=== PATIENT | female | born 1960 | race Caucasian/White ===

== ENCOUNTER → 2016-06-07 17:01 | Outpatient (CLI) | payer MEDICARE | END | disposition home or self-care (01) | LOC: D.MAMMO 11:15 | DX: Z12.31 Encounter for screening mammogram for malignant neoplasm of breast (principal) ==

== ENCOUNTER 2016-12-10 11:37 | Emergency (ER) | payer MEDICARE | END 2016-12-10 13:57 | disposition home or self-care (01) | LOC: D.ER 11:37 | DX: T49.5X5A Adverse effect of ophthalmological drugs and preparations, initial encounter (principal); Y92.89 Other specified places as the place of occurrence of the external cause; R60.0 Localized edema ==

== ENCOUNTER 2016-12-17 12:43 | Emergency (ER) | payer MEDICARE | END 2016-12-17 15:20 | disposition home or self-care (01) | LOC: D.ER 12:43 | DX: R06.00 Dyspnea, unspecified (principal); J01.90 Acute sinusitis, unspecified; R09.89 Other specified symptoms and signs involving the circulatory and respiratory systems; R50.9 Fever, unspecified ==

== ENCOUNTER → 2018-03-13 17:40 | Outpatient (CLI) | payer MEDICARE | END | disposition home or self-care (01) | LOC: D.MAMMO 13:30 | DX: Z12.31 Encounter for screening mammogram for malignant neoplasm of breast (principal) ==

== ENCOUNTER 2018-04-09 15:07 | Inpatient (IN) | payer MEDICARE ==
[~2018-04-09] VITALS: Ht 160 cm; Wt 90.0 kg
--- NOTE | ~2018-04-09 | MORECARE ---
CASE MANAGEMENT DISCHARGE SUMMARY PATIENT: RAS MULLINS STACIE UNIT: [id number] ADM DATE: 04/09/18 AGE: 57 : 64 SEX: F ROOM/BED: D.2220 AUTHOR: JOHN PATTERSON PHYSICIAN: REFERRING PHYSICIAN: ABIMAEL CASH MD DATE OF SERVICE: 04/11/18 Discharge Plan Patient Name: RAS MULLINS Facility: [facility]:[place] : 1960 Planned Disposition: Home Anticipated Discharge Date: Discharge Date: Expected LOS: Initial Reviewer: [email or web address] Initial Review Date: 04/09/2018 Generated: 04/11/18 1:18 pm Comments DCP- Discharge Planning Updated by [id number]: Sita Ross on 04/11/18 11:[address] Patient Name: RAS MULLINS Admission Status: ER Accout number: [id number] Admission Date: 04-09-2018 : 1960 Admission Diagnosis: Attending: ABIMAEL CASH Current LOS: 2 Anticipated DC Date: Planned Disposition: Home Primary Insurance: MEDICARE A & B Discharge Planning Comments: CM met with patient to assess discharge planning needs. Patient stated that she lives independently at home where she plans to return at discharge. Either her son or daughter will be her bobtail driver home. She denies any use of DME. She stated that she could use some help with cleaning at home. I sent a referral to [facility], I spoke with Albin. They will see and assist her. She stated her home is safe to return. CM will continue to follow and assist with DC planning Ammonia Nitrate Operator: Sita Ross DCPIA - Discharge Planning Initial Assessment Updated by [email or web address]: Sita Ross on 04/11/18 12:08 pm * Is the patient Alert and Oriented? Yes * How many steps to enter\exit or inside your home? * PCP DR RAYMUNDO ([place]) * Pharmacy [facility] * Preadmission Environment Home Alone * ADLs Independent * Equipment None * List name and contact numbers for known caregivers / representatives who currently or will assist patient after discharge: DIONISIO RAYMUNDO (DAUGHTER) [phone] * Verbal permission to speak to the caregivers and representatives has been obtained from the patient. N/A * Community resources currently utilized None * Additional services required to return to the preadmission environment? No * Can the patient safely return to the preadmission environment? Yes * Has this patient been hospitalized within the prior 30 days at any hospital? No Last DP export: 04/11/18 11:09 Patient Name: RAS MULLINS Page [id number] at 1218 All edits/amendments must be made on the electronic document DICTATION DATE: 04/11/181216 LABEL DESIGNER: PAIGE 04/11/181216 RPT#: [id number] DC DATE: STATUS: ADM IN [facility] [address] [place] [address] END OF REPORT
--- NOTE | ~2018-04-09 | MORECARE ---
CASE MANAGEMENT DISCHARGE SUMMARY PATIENT: RAS MULLINS STACIE UNIT: [id number] ADM DATE: 04/09/18 AGE: 57 : 64 SEX: F ROOM/BED: D.2220 AUTHOR: JOHN PATTERSON PHYSICIAN: REFERRING PHYSICIAN: ABIMAEL CASH MD DATE OF SERVICE: 04/12/18 Discharge Plan Patient Name: RAS MULLINS Facility: [facility]:[place] : 1960 Planned Disposition: Home Anticipated Discharge Date: Discharge Date: Expected LOS: Initial Reviewer: [email or web address] Initial Review Date: 04/09/2018 Generated: 04/12/18 3:01 pm Comments DCP- Discharge Planning Updated by [email or web address]: Sita Ross on 04/12/18 12:[address] PATIENT WILL BE DISHCAHRGED HOME TODAY, I SENT REFERRAL TO [facility], I CALLED AGAIN TO LET THEM KNOW THAT SHE WAS BEING DISHCARGED. THEY STATED THAT THEY WOULD GO TO THE PATIENTS HOME FOR ASSESSMENT IF THEY DIDN'T GET TO THE HOSPITAL BEFORE SHE WAS DISCHARGED. IMM SERVED AND EXPLAINED. CM WILL CONTINUE TO FOLLOW AND ASSIST WITH DC PLANNNING DCP- Discharge Planning Updated by [email or web address]: Sita Ross on 04/11/18 11:[address] Patient Name: RAS MULLINS Admission Status: ER Accout number: [id number] Admission Date: 04-09-2018 : 1960 Admission Diagnosis: Attending: ABIMAEL CASH Current LOS: 2 Anticipated DC Date: Planned Disposition: Home Primary Insurance: MEDICARE A & B Discharge Planning Comments: CM met with patient to assess discharge planning needs. Patient stated that she lives independently at home where she plans to return at discharge. Either her son or daughter will be her milk driver home. She denies any use of DME. She stated that she could use some help with cleaning at home. I sent a referral to [facility], I spoke with Albin. They will see and assist her. She stated her home is safe to return. CM will continue to follow and assist with DC planning Hand Launderer: Sita Ross DCPIA - Discharge Planning Initial Assessment Updated by [email or web address]: Sita Ross on 04/11/18 12:08 pm * Is the patient Alert and Oriented? Yes * How many steps to enter\exit or inside your home? * PCP DR RAYMUNDO ([place]) * Pharmacy [facility] * Preadmission Environment Home Alone * ADLs Independent * Equipment None * List name and contact numbers for known caregivers / representatives who currently or will assist patient after discharge: DIONISIO RAYMUNDO (DAUGHTER) [phone] * Verbal permission to speak to the caregivers and representatives has been obtained from the patient. N/A * Community resources currently utilized None * Additional services required to return to the preadmission environment? No * Can the patient safely return to the preadmission environment? Yes * Has this patient been hospitalized within the prior 30 days at any hospital? No Coverage Notice Reviewer: [email or web address] Aashish Ross Notice Issued Date-Time: 04/12/2018 13:50 Notice Type: IM Discharge Notice Notice Delivered To: Patient Relationship to Patient: Electrical System Specialist Name: Delivery Method: HAND - Hand Delivered Catalina Days: Prior Verbal Notification: Recipient Understood Notice: Yes Recipient Signature: Yes Med Rec Note Co-signed by Attending: Coverage Notice Comment: Last DP export: 04/11/18 11:18 Patient Name: RAS MULLINS Page [phone] at 1402 All edits/amendments must be made on the electronic document DICTATION DATE: 04/12/18 1401 FISH CULTURIST: PAIGE 04/12/18 1401 RPT#: [id number] DC DATE: STATUS: ADM IN [facility] [address] [place] [address] END OF REPORT
--- NOTE | ~2018-04-09 | MORECARE ---
CASE MANAGEMENT DISCHARGE SUMMARY PATIENT: RAS MULLINS STACIE UNIT: [id number] ADM DATE: 04/09/18 AGE: 57 : 64 SEX: F ROOM/BED: D.2220 AUTHOR: JOHN PATTERSON PHYSICIAN: REFERRING PHYSICIAN: ABIMAEL CASH MD DATE OF SERVICE: 04/12/18 Discharge Plan Patient Name: RAS MULLINS Facility: [facility]:[place] : 1960 Planned Disposition: Home Anticipated Discharge Date: Discharge Date: 04/12/2018 Expected LOS: 0 Initial Reviewer: [email or web address] Initial Review Date: 04/09/2018 Generated: 04/12/18 5:42 pm Comments DCP- Discharge Planning Updated by [email or web address]: Sita Ross on 04/12/18 12:[address] PATIENT WILL BE DISHCAHRGED HOME TODAY, I SENT REFERRAL TO [facility], I CALLED AGAIN TO LET THEM KNOW THAT SHE WAS BEING DISHCARGED. THEY STATED THAT THEY WOULD GO TO THE PATIENTS HOME FOR ASSESSMENT IF THEY DIDN'T GET TO THE HOSPITAL BEFORE SHE WAS DISCHARGED. IMM SERVED AND EXPLAINED. CM WILL CONTINUE TO FOLLOW AND ASSIST WITH DC PLANNNING DCP- Discharge Planning Updated by [email or web address]: Sita Ross on 04/11/18 11:[address] Patient Name: RAS MULLINS Admission Status: ER Accout number: [id number] Admission Date: 04-09-2018 : 1960 Admission Diagnosis: Attending: ABIMAEL CASH Current LOS: 2 Anticipated DC Date: Planned Disposition: Home Primary Insurance: MEDICARE A & B Discharge Planning Comments: CM met with patient to assess discharge planning needs. Patient stated that she lives independently at home where she plans to return at discharge. Either her son or daughter will be her route driver home. She denies any use of DME. She stated that she could use some help with cleaning at home. I sent a referral to [facility], I spoke with Albin. They will see and assist her. She stated her home is safe to return. CM will continue to follow and assist with DC planning Water/Wastewater Project Engineer: Sita Ross DCPIA - Discharge Planning Initial Assessment Updated by [email or web address]: Sita Ross on 04/11/18 12:08 pm * Is the patient Alert and Oriented? Yes * How many steps to enter\exit or inside your home? * PCP DR RAYMUNDO ([place]) * Pharmacy [facility] * Preadmission Environment Home Alone * ADLs Independent * Equipment None * List name and contact numbers for known caregivers / representatives who currently or will assist patient after discharge: DIONISIO RAYMUNDO (DAUGHTER) [phone] * Verbal permission to speak to the caregivers and representatives has been obtained from the patient. N/A * Community resources currently utilized None * Additional services required to return to the preadmission environment? No * Can the patient safely return to the preadmission environment? Yes * Has this patient been hospitalized within the prior 30 days at any hospital? No Coverage Notice Reviewer: [email or web address] - Sita Ross Notice Issued Date-Time: 04/12/2018 13:50 Notice Type: IM Discharge Notice Notice Delivered To: Patient Relationship to Patient: Personal Counselor Name: Delivery Method: HAND - Hand Delivered Catalina Days: Prior Verbal Notification: Recipient Understood Notice: Yes Recipient Signature: Yes Med Rec Note Co-signed by Attending: Coverage Notice Comment: Last DP export: 04/12/18 1:01 Patient Name: RAS MULLINS Page [phone] at 1642 All edits/amendments must be made on the electronic document DICTATION DATE: 04/12/181641 PRINT FINISHING WORKER: PAIGE 04/12/181641 RPT#: [id number] DC DATE:04/12/18 STATUS: DIS IN [facility] [address] [place] [address] END OF REPORT
--- NOTE | ~2018-04-09 | MORECARE ---
CASE MANAGEMENT DISCHARGE SUMMARY PATIENT: RAS MULLINS STACIE UNIT: [id number] ADM DATE: 04/09/18 AGE: 57 : 64 SEX: F ROOM/BED: D.2220 AUTHOR: JOHN PATTERSON PHYSICIAN: REFERRING PHYSICIAN: ABIMAEL CASH MD DATE OF SERVICE: 04/11/18 Discharge Plan Patient Name: RAS MULLINS Facility: [facility]:[place] : 1960 Planned Disposition: Home Anticipated Discharge Date: Discharge Date: Expected LOS: Initial Reviewer: [email or web address] Initial Review Date: 04/09/2018 Generated: 04/11/18 1:09 pm DCPIA - Discharge Planning Initial Assessment Updated by [email or web address]: Sita Ross on 04/11/18 12:08 pm * Is the patient Alert and Oriented? Yes * How many steps to enter\exit or inside your home? * PCP DR RAYMUNDO ([place]) * [facility] * Preadmission Environment Home Alone * ADLs Independent * Equipment None * List name and contact numbers for known caregivers / representatives who currently or will assist patient after discharge: DIONISIO RAYMUNDO (DAUGHTER) [phone] * Verbal permission to speak to the caregivers and representatives has been obtained from the patient. N/A * Community resources currently utilized None * Additional services required to return to the preadmission environment? No * Can the patient safely return to the preadmission environment? Yes * Has this patient been hospitalized within the prior 30 days at any hospital? No External Providers External Provider: [facility] Contact Date: Service Request Date: Service Type: Resolution: Reviewer: Comments: Patient Name: RAS MULLINS Page [phone] at 1209 All edits/amendments must be made on the electronic document DICTATION DATE: 04/11/18 1209 UPKEEP MECHANIC: PAIGE 04/11/18 1209 RPT#: [id number] DC DATE: STATUS: ADM IN [facility] [address] [place] [address] END OF REPORT
[2018-04-09 16:02] VITALS: BP 102/63
[2018-04-09 16:37] LABS: APPEARANCE CLEAR (CLEAR); BILIRUBIN NEGATIVE (NEGATIVE); COLOR YELLOW (YELLOW); GLUCOSE NEGATIVE (NEGATIVE); KETONE NEGATIVE (NEGATIVE); NITRITE NEGATIVE (NEGATIVE); PROTEIN NEGATIVE (NEGATIVE); UROBILINOGEN NORMAL (NORMAL)
[2018-04-09 16:50] LABS: BASOPHILS 0.9 % (0-2); EOSINOPHILS 4.5 % (0-7); HEMATOCRIT 36.9 % (36.0-48.0); LYMPHOCYTES 49.3 % (15-50); MCH 29.1 pg (26.0-34.0); MCHC 32.5 g/dL (31.0-37.0); MCV 89.3 fL (80.0-100.0); MEAN PLATELET VOLUME 10.8 fL (7.4-10.4); NEUTROPHILS 31.3 % (40-80); PLATELET COUNT 208 10x3/uL (130-400); RBC 4.13 10x6/uL (4.00-5.40); WBC 3.4 10x3/uL (4.8-10.8)
[2018-04-09 17:18] LABS: ALBUMIN 3.4 g/dL (3.4-5.0); ALKALINE PHOSPHATASE 75 U/L (46-116); ALT (SGPT) 13 U/L (10-68); AMYLASE - SERUM 43 U/L (25-115); BILIRUBIN - TOTAL 0.31 mg/dL (0.2-1.3); CALC OSMOLALITY 275 mosm/kg (275-300); CALCIUM 8.6 mg/dL (8.5-10.1); CARBON DIOXIDE 21.5 mmol/L (21.0-32.0); CHLORIDE - SERUM 107 mmol/L (98-107); CREATININE - SERUM 0.6 mg/dL (0.6-1.3); GLUCOSE 79 mg/dL (74-106); LIPASE 138 U/L (73-393); PROTEIN - SERUM 6.7 g/dL (6.4-8.2); SODIUM 140 mmol/L (136-145); UREA NITROGEN 8 mg/dL (7-18); eGFR NON AFRICAN AMERICAN > 90 mL/min (90-120)
[2018-04-09 17:42] VITALS: BP 117/75
[2018-04-09 20:00] VITALS: BP 128/85
[2018-04-09 22:11] VITALS: BP 105/65
[2018-04-09 23:50] VITALS: BP 105/62; BMI 35.1
[2018-04-10] VITALS: BP 105/62
[2018-04-10 04:00] VITALS: BP 90/54
[2018-04-10 05:00] LABS: HEMATOCRIT 33.3 % (36.0-48.0); HEMOGLOBIN 10.6 g/dL (12-16); MCHC 31.8 g/dL (31.0-37.0); MCV 91.2 fL (80.0-100.0); MEAN PLATELET VOLUME 10.3 fL (7.4-10.4); RBC 3.65 10x6/uL (4.00-5.40); RDW 14.1 % (11.5-14.5); WBC 3.5 10x3/uL (4.8-10.8)
[2018-04-10 05:30] LABS: ALBUMIN 2.7 g/dL (3.4-5.0); ALKALINE PHOSPHATASE 63 U/L (46-116); ALT (SGPT) 10 U/L (10-68); BILIRUBIN - TOTAL 0.28 mg/dL (0.2-1.3); CALC OSMOLALITY 284 mosm/kg (275-300); CALCIUM 7.9 mg/dL (8.5-10.1); CARBON DIOXIDE 25.1 mmol/L (21.0-32.0); CHLORIDE - SERUM 110 mmol/L (98-107); GLUCOSE 82 mg/dL (74-106); POTASSIUM - SERUM 3.6 mmol/L (3.5-5.1); PROTEIN - SERUM 5.6 g/dL (6.4-8.2); SODIUM 144 mmol/L (136-145); UREA NITROGEN 10 mg/dL (7-18)
[2018-04-10 05:51] LABS: CREATININE - SERUM 0.8 mg/dL (0.6-1.3); eGFR NON AFRICAN AMERICAN 79 mL/min (90-120)
[2018-04-10 06:35] LABS: PLATELET COUNT 163 10x3/uL (130-400)
[2018-04-10 07:42] LABS: EOSINOPHILS 4 % (0-7); LYMPHOCYTES 56 % (15-50); MONOCYTES 6 % (2-11); NEUTROPHILS 32 % (40-80); PLATELET ESTIMATE NORMAL; PLATELET MORPHOLOGY PLT CLUMPS PRESENT; SMUDGE CELLS OCC
[2018-04-10 08:15] VITALS: BP 87/53
[2018-04-10] MEDS ORDERED: DOK100 MG PO (13:46)
[2018-04-10] MEDS ORDERED: AMITRIPTYLINE100 MG PO (13:46)
[2018-04-10] MEDS ORDERED: CELEXA40 MG PO (13:47)
[2018-04-10] MEDS ORDERED: ESTRACE 0.5 MG0.5 MG PO (13:47)
[2018-04-10] MEDS ORDERED: MOBIC7.5 MG PO (13:48)
[2018-04-10] MEDS ORDERED: ZOCOR40 MG PO (13:49)
[2018-04-10] MEDS ORDERED: LUNESTA2 M1 PO (13:50)
[2018-04-10] MEDS ORDERED: LYRICA75 MG PO (13:51)
[2018-04-10] MEDS ORDERED: TOPAMAX50 MG PO (13:52)
[2018-04-10] MEDS ORDERED: LISINOPRIL5 MG PO (13:52)
[2018-04-10] MEDS ORDERED: FLUTICASONE PRO16 GM NASAL (13:53)
[2018-04-10 14:42] VITALS: BP 89/54
[2018-04-10 17:41] VITALS: Ht 160 cm; Wt 90.0 kg
[2018-04-10 20:00] VITALS: BP 107/63
[2018-04-11] VITALS: BP 105/58
[2018-04-11 04:00] VITALS: BP 91/52
[2018-04-11 04:36] LABS: BASOPHILS 0.9 % (0-2); EOSINOPHILS 6.4 % (0-7); HEMATOCRIT 33.1 % (36.0-48.0); HEMOGLOBIN 10.6 g/dL (12-16); IMMATURE GRANULOCYTES 0.3 % (0-5); LYMPHOCYTES 42.8 % (15-50); MCV 90.4 fL (80.0-100.0); MEAN PLATELET VOLUME 10.5 fL (7.4-10.4); MONOCYTES 13.1 % (2-11); NEUTROPHILS 36.5 % (40-80); PLATELET COUNT 159 10x3/uL (130-400); RBC 3.66 10x6/uL (4.00-5.40); RDW 14.1 % (11.5-14.5); WBC 3.3 10x3/uL (4.8-10.8)
[2018-04-11 04:45] LABS: CALC OSMOLALITY 285 mosm/kg (275-300); CALCIUM 8.2 mg/dL (8.5-10.1); CHLORIDE - SERUM 109 mmol/L (98-107); CREATININE - SERUM 0.7 mg/dL (0.6-1.3); GLUCOSE 93 mg/dL (74-106); POTASSIUM - SERUM 3.6 mmol/L (3.5-5.1); SODIUM 144 mmol/L (136-145); UREA NITROGEN 9 mg/dL (7-18); eGFR NON AFRICAN AMERICAN > 90 mL/min (90-120)
[2018-04-11 08:00] VITALS: BP 113/64
[2018-04-11 12:54] VITALS: BP 102/61
[2018-04-11 20:41] VITALS: BP 100/61
[2018-04-12 01:03] VITALS: BP 80/47
[2018-04-12 04:39] VITALS: BP 98/56
[2018-04-12 05:23] LABS: BASOPHILS 0.7 % (0-2); EOSINOPHILS 6.6 % (0-7); HEMATOCRIT 34.1 % (36.0-48.0); HEMOGLOBIN 10.9 g/dL (12-16); IMMATURE GRANULOCYTES 0.3 % (0-5); LYMPHOCYTES 53.6 % (15-50); MCH 29.1 pg (26.0-34.0); MCV 91.2 fL (80.0-100.0); MEAN PLATELET VOLUME 10.8 fL (7.4-10.4); MONOCYTES 13.5 % (2-11); NEUTROPHILS 25.3 % (40-80); PLATELET COUNT 176 10x3/uL (130-400); RBC 3.74 10x6/uL (4.00-5.40); RDW 14.1 % (11.5-14.5)
[2018-04-12 05:48] LABS: CALC OSMOLALITY 281 mosm/kg (275-300); CALCIUM 8.1 mg/dL (8.5-10.1); CARBON DIOXIDE 23.9 mmol/L (21.0-32.0); CHLORIDE - SERUM 109 mmol/L (98-107); CREATININE - SERUM 0.7 mg/dL (0.6-1.3); GLUCOSE 81 mg/dL (74-106); POTASSIUM - SERUM 3.4 mmol/L (3.5-5.1); SODIUM 143 mmol/L (136-145); UREA NITROGEN 8 mg/dL (7-18); eGFR NON AFRICAN AMERICAN > 90 mL/min (90-120)
[2018-04-12 08:22] VITALS: BP 78/32
[2018-04-12 09:17] LABS: HEPATITIS C ANTIBODY <0.1 S/CO RAT (0.0-0.9)
[2018-04-12 10:23] LABS: INR 0.95 (0.85-1.17); PROTIME 12.2 SECONDS (11.6-15.0)
[2018-04-12 12:15] LABS: EBV - EARLY ANTIGEN AB IGG 31.4 U/mL (0.0-8.9); EBV VIRAL CAPSID AB IGM <36.0 U/mL (0.0-35.9)
[2018-04-12] MEDS ORDERED: HYDROCODON-ACE1 EAC7 PO (12:33)
[2018-04-12] MEDS ORDERED: MIRALAX17 GM PO (12:33)
[2018-04-12 12:35] VITALS: BP 86/40
[2018-04-12 15:52] VITALS: BP 101/65
[2018-04-12 19:11] LABS: SPE - A/G RATIO 1.4 (0.7-1.7); SPE - ALPHA-1 GLOBULIN 0.2 g/dL (0.0-0.4); SPE - ALPHA-2 GLOBULIN 0.6 g/dL (0.4-1.0); SPE - BETA GLOBULIN 0.7 g/dL (0.7-1.3); SPE - GAMMA GLOBULIN 0.7 g/dL (0.4-1.8); SPE - M-SPIKE 0.1 g/dL (Not Observed); SPE - TOTAL PROTEIN 5.1 g/dL (6.0-8.5)
== END 2018-04-12 16:04 | disposition home or self-care (01) | DRG 841 ==
LOC: D.ER 15:07 → D.EDHOLD 20:15 → D.MS 20:15 → D.SDCHOLD 04-10 17:05 → D.MS 04-10 17:06
PROVIDERS: Family Medicine; Internal Medicine Hematology & Oncology; Internal Medicine Nephrology; Specialist
DX: C85.90 Non-Hodgkin lymphoma, unspecified, unspecified site (principal); L03.311 Cellulitis of abdominal wall; R16.2 Hepatomegaly with splenomegaly, not elsewhere classified; D64.9 Anemia, unspecified

== ENCOUNTER 2018-06-21 05:58 | Outpatient (CLI) | payer MEDICARE ==
[~2018-06-21] VITALS: Ht 160 cm; Wt 89.8 kg
[~2018-06-21 05:58] MED LIST: AMITRIPTYLINE100 MG PO; CELEXA40 MG PO; DOK100 MG PO; ESTRACE 0.5 MG0.5 MG PO; FLUTICASONE PRO16 GM NASAL; HYDROCODON-ACE1 EAC7 PO; LISINOPRIL5 MG PO; LUNESTA2 M1 PO; LYRICA75 MG PO; MIRALAX17 GM PO; MOBIC7.5 MG PO; TOPAMAX50 MG PO; ZOCOR40 MG PO
[2018-06-21 06:25] LABS: BASOPHILS 0.8 % (0-2); EOSINOPHILS 7.5 % (0-7); HEMOGLOBIN 13.1 g/dL (12-16); LYMPHOCYTES 42.5 % (15-50); MCH 29.4 pg (26.0-34.0); MCHC 32.8 g/dL (31.0-37.0); MCV 89.7 fL (80.0-100.0); MEAN PLATELET VOLUME 10.6 fL (7.4-10.4); MONOCYTES 10.3 % (2-11); NEUTROPHILS 38.9 % (40-80); RBC 4.46 10x6/uL (4.00-5.40); RDW 13.3 % (11.5-14.5); WBC 5.2 10x3/uL (4.8-10.8)
[2018-06-21 06:27] LABS: PLATELET COUNT 233 10x3/uL (130-400)
[2018-06-21 06:37] LABS: INR 1.02 (0.85-1.17); PROTIME 12.9 SECONDS (11.6-15.0)
[2018-06-21 06:44] LABS: CALC OSMOLALITY 283 mosm/kg (275-300); CALCIUM 8.8 mg/dL (8.5-10.1); CHLORIDE - SERUM 109 mmol/L (98-107); CREATININE - SERUM 0.8 mg/dL (0.6-1.3); GLUCOSE 86 mg/dL (74-106); POTASSIUM - SERUM 3.6 mmol/L (3.5-5.1); SODIUM 143 mmol/L (136-145); UREA NITROGEN 12 mg/dL (7-18); eGFR NON AFRICAN AMERICAN 79 mL/min (90-120)
[2018-06-21 07:15] VITALS: BP 107/70; Ht 160 cm; Wt 89.8 kg
--- NOTE | 2018-06-21 09:06 | NUR ---
0900-RECD FROM IR. ALERT. IV PATENT. RESP WITH EASE. LUMBAR DRESSING DRY AND INTACT. HOB UP, DRINKING CONTRAST FOR CT TO FOLLOW.
--- NOTE | 2018-06-21 09:50 | NUR ---
PATIENT LEFT THE FLOOR TO HAVE A CT SCAN DONE.
--- NOTE | 2018-06-21 10:30 | NUR ---
PATIENT IS BACK FROM HAVING A CT SCAN DONE, SHE WAS PROVIDED A FULL LIQUID TRAY.
== END 2018-06-21 11:15 ==
LOC: D.SP 05:58 → D.CT 08:00 → D.SP 11:15
PROVIDERS: General Practice; ATTEND Internal Medicine Nephrology
DX: C85.90 Non-Hodgkin lymphoma, unspecified, unspecified site (principal); R16.2 Hepatomegaly with splenomegaly, not elsewhere classified; Z01.812 Encounter for preprocedural laboratory examination

== ENCOUNTER 2018-06-28 08:45 | Outpatient (CLI) | payer MEDICARE ==
[~2018-06-28] VITALS: Ht 160 cm; Wt 90.0 kg
[2018-06-28 09:14] LABS: CALC OSMOLALITY 285 mosm/kg (275-300); CARBON DIOXIDE 25.8 mmol/L (21.0-32.0); CHLORIDE - SERUM 107 mmol/L (98-107); CREATININE - SERUM 0.8 mg/dL (0.6-1.3); EOSINOPHILS 7.2 % (0-7); GLUCOSE 88 mg/dL (74-106); HEMATOCRIT 40.8 % (36.0-48.0); HEMOGLOBIN 13.5 g/dL (12-16); IMMATURE GRANULOCYTES 0.6 % (0-5); LYMPHOCYTES 37.9 % (15-50); MCH 29.3 pg (26.0-34.0); MCHC 33.1 g/dL (31.0-37.0); MCV 88.7 fL (80.0-100.0); MEAN PLATELET VOLUME 10.2 fL (7.4-10.4); MONOCYTES 10.7 % (2-11); NEUTROPHILS 42.6 % (40-80); PLATELET COUNT 254 10x3/uL (130-400); POTASSIUM - SERUM 3.7 mmol/L (3.5-5.1); RDW 13.6 % (11.5-14.5); SODIUM 144 mmol/L (136-145); UREA NITROGEN 12 mg/dL (7-18); WBC 5.3 10x3/uL (4.8-10.8); eGFR NON AFRICAN AMERICAN 79 mL/min (90-120)
[2018-06-28 09:38] LABS: PROTIME 12.7 SECONDS (11.6-15.0)
[2018-06-28 09:39] LABS: APTT 32.5 SECONDS (22.8-39.4)
[2018-06-28 09:45] VITALS: BP 118/77; Ht 160 cm; Wt 90.0 kg
--- NOTE | 2018-06-28 11:10 | NUR ---
REC'D FROM SPECIALS. DRESSING CDI TO BACK. NO FAMILY CURRENTLY AT BEDSIDE. DRINK BROUGHT TO PT,
--- NOTE | 2018-06-28 11:40 | NUR ---
REGULAR TRAY BROUGHT TO PT. DRESSING CDI.
--- NOTE | 2018-06-28 12:30 | NUR ---
TOLERATED REGULAR DIET. FAMILY AT BEDSIDE.
--- NOTE | 2018-06-28 13:15 | NUR ---
IV DC'D WITH CATHETER INTACT. WRITTEN AND VERBAL DC INST. GIVEN TO PT. VERBALIZED UNDERSTANDING.
--- NOTE | 2018-06-28 13:25 | NUR ---
DC'D HOME WITH FAMILY VIA PRIVATE VEHICLE. TAKEN TO VEHICLE VIA WC. STABLE AT TIME OF DC.
== END 2018-06-28 13:25 | disposition home or self-care (01) ==
LOC: D.OPS 08:45 → D.CT 11:00 → D.OPS 13:25
PROVIDERS: Radiology Diagnostic Radiology; ATTEND Internal Medicine Hematology & Oncology
DX: R59.0 Localized enlarged lymph nodes (principal); Z01.812 Encounter for preprocedural laboratory examination

== ENCOUNTER 2018-08-13 11:43 | Emergency (ER) | payer MEDICARE ==
[~2018-08-13] VITALS: Ht 160 cm; Wt 87.7 kg
[2018-08-13 12:12] VITALS: Ht 160 cm; Wt 87.7 kg
[2018-08-13 13:20] LABS: APPEARANCE CLEAR (CLEAR); BILIRUBIN NEGATIVE (NEGATIVE); COLOR YELLOW (YELLOW); GLUCOSE NEGATIVE (NEGATIVE); KETONE NEGATIVE (NEGATIVE); NITRITE NEGATIVE (NEGATIVE); PROTEIN NEGATIVE (NEGATIVE); UROBILINOGEN NORMAL (NORMAL)
[2018-08-13 13:44] LABS: BASOPHILS 0.8 % (0-2); EOSINOPHILS 4.3 % (0-7); HEMATOCRIT 38.1 % (36.0-48.0); HEMOGLOBIN 12.7 g/dL (12-16); LYMPHOCYTES 42.4 % (15-50); MCH 29.5 pg (26.0-34.0); MCHC 33.3 g/dL (31.0-37.0); MCV 88.6 fL (80.0-100.0); MEAN PLATELET VOLUME 10.9 fL (7.4-10.4); MONOCYTES 7.6 % (2-11); NEUTROPHILS 44.9 % (40-80); RDW 13.3 % (11.5-14.5); WBC 3.9 10x3/uL (4.8-10.8)
[2018-08-13 13:45] LABS: ALBUMIN 3.5 g/dL (3.4-5.0); ANION GAP 12.5 mmol/L (8-16); BILIRUBIN - TOTAL 0.32 mg/dL (0.2-1.3); CALCIUM 9.2 mg/dL (8.5-10.1); CARBON DIOXIDE 23.9 mmol/L (21.0-32.0); CREATININE - SERUM 0.9 mg/dL (0.6-1.3); POTASSIUM - SERUM 3.4 mmol/L (3.5-5.1); PROTEIN - SERUM 6.7 g/dL (6.4-8.2)
[2018-08-13 14:04] LABS: PLATELET COUNT 186 10x3/uL (130-400)
[2018-08-13 14:45] VITALS: BP 105/70
[2018-08-13] MEDS ORDERED: BENTYL 20 MG TA20 MG PO (15:10)
[2018-08-13] MEDS ORDERED: CHRONULAC30 ML PO (15:10)
== END 2018-08-13 15:40 | disposition home or self-care (01) ==
LOC: D.ER 11:43
PROVIDERS: Family Medicine
DX: R10.9 Unspecified abdominal pain (principal); K59.00 Constipation, unspecified; I10 Essential (primary) hypertension; K21.9 Gastro-esophageal reflux disease without esophagitis

== ENCOUNTER 2019-01-16 20:53 | Emergency (ER) | payer MEDICARE, MEDICAID ==
[~2019-01-16] VITALS: Ht 160 cm; Wt 90.0 kg
[~2019-01-16 20:53] MED LIST changes: +BENTYL 20 MG TA20 MG PO; +CHRONULAC30 ML PO
[2019-01-16 21:00] VITALS: Ht 160 cm; Wt 90.0 kg
[2019-01-16 21:55] VITALS: BP 132/71
== END 2019-01-16 21:55 | disposition home or self-care (01) ==
LOC: D.ER 20:53
DX: S61.214A Laceration without foreign body of right ring finger without damage to nail, initial encounter (principal); W25.XXXA Contact with sharp glass, initial encounter